=== PATIENT | female | born 1935 | race Caucasian/White ===

== ENCOUNTER → 2017-03-26 08:42 | Outpatient (CLI) | payer MEDICARE, OTHER ==
[2015-07-10 03:39] VITALS: BMI 20.5
[~2017-03-26 08:42] MED LIST: CARDIZEM LA240 MG PO; ELIQUIS2.5 MG PO; MACROBID100 MG PO; PERCOCET 10/3251 TA1 PO; SYNTHROID88 MCG PO; ULTRAM50 MG PO; ZETIA10 MG PO
== END | disposition home or self-care (01) ==
LOC: D.LABREF 08:42
DX: M16.12 Unilateral primary osteoarthritis, left hip (principal); Z11.8 Encounter for screening for other infectious and parasitic diseases

== ENCOUNTER 2017-04-16 05:22 | Inpatient (IN) | payer MEDICARE, OTHER ==
--- NOTE | 2017-04-11 10:32 | NUR ---
[facility] APPT: PATIENT HAS SKIN TEAR RIGHT ANTERIOR BRASHER WITH STERI-STRIPS INTACT, SURROUNDING AREA SLIGHTLY RED & PUFFY. DR. NICHOLS NOTIFIED. PATIENT INSTRUCTED TO GO TO OFFICE AFTER PRE-OP TESTING TODAY.
[2017-04-11 10:34] LABS: BASOPHILS 0.6 % (0-2); EOSINOPHILS 7.1 % (0-7); HEMATOCRIT 43.1 % (36.0-48.0); IMMATURE GRANULOCYTES 0.1 % (0-5); LYMPHOCYTES 36.2 % (15-50); MCH 31.8 pg (26.0-34.0); MCHC 32.5 g/dL (31.0-37.0); WBC 7.2 10x3/uL (4.8-10.8)
[2017-04-11 10:51] LABS: APTT 26.9 SECONDS (22.8-39.4); INR 0.97 (0.85-1.17); PROTIME 12.7 SECONDS (11.6-15.0)
[2017-04-11 10:52] LABS: ANION GAP 10.2 mmol/L (8-16); CALCIUM 9.6 mg/dL (8.5-10.1); CARBON DIOXIDE 29.6 mmol/L (21.0-32.0); CREATININE - SERUM 1.3 mg/dL (0.6-1.3); POTASSIUM - SERUM 3.8 mmol/L (3.5-5.1)
[2017-04-11 10:54] LABS: PLATELET COUNT 195 10x3/uL (130-400)
[2017-04-11 11:02] LABS: APPEARANCE SLT CLOUDY (CLEAR); BILIRUBIN NEGATIVE (NEGATIVE); COLOR YELLOW (YELLOW); GLUCOSE NEGATIVE (NEGATIVE); KETONE NEGATIVE (NEGATIVE); NITRITE NEGATIVE (NEGATIVE); PROTEIN 1+ mg/dL (NEGATIVE); SPECIFIC GRAVITY 1.025 (1.005-1.020); UROBILINOGEN NORMAL (NORMAL)
[2017-04-11 11:03] LABS: EPITHELIAL CELLS 0-5 /hpf (0-5); HYALINE CAST 0-5 /lpf (NONE SEEN); MUCUS <1+ /lpf (NONE SEEN); RED CELLS - URINE 25-50 /hpf (0-5); WAXY CAST RARE /lpf (NONE SEEN); WHITE CELLS - URINE 25-50 /hpf (0-5)
[2017-04-11 11:05] LABS: BACTERIA FEW /hpf (NONE SEEN)
[2017-04-16] VITALS (14 sets, daily range): BP systolic 104–134; BP diastolic 47–63; BMI 22.8
[~2017-04-16 05:22] MED LIST changes: +NYSTATIN ORAL SU5 ML PO; +SYNTHROID100 MCG PO; -SYNTHROID88 MCG PO
[2017-04-16] MEDS ORDERED: KEFLEX500 MG (09:48)
--- NOTE | 2017-04-16 16:38 | NUR ---
SCOPE PATCH BEHIND RT EAR ON admit
--- NOTE | 2017-04-16 17:22 | NUR ---
MALICK REYEZ. CALL LIGHT IN REACH.
[2017-04-17 04:00] VITALS: BP 145/74
[2017-04-17 04:57] LABS: HEMATOCRIT 37.1 % (36.0-48.0); HEMOGLOBIN 12.1 g/dL (12-16); MCH 31.3 pg (26.0-34.0); MCHC 32.6 g/dL (31.0-37.0); MCV 95.9 fL (80.0-100.0); MEAN PLATELET VOLUME 10.1 fL (7.4-10.4); RBC 3.87 10x6/uL (4.00-5.40)
--- NOTE | 2017-04-17 07:30 | NUR ---
RECIEVED PT DURING WALKING ROUNDS. PT RESTING IN BED WITH NO COMPLAINTS OF PAIN AT THIS TIME. PT STATING SHE CONTINUES TO "DRIPPLE" URINE. SPOKE WITH DR. EMERSON ABOUT IT. ASSESSMENT DONE PER FLOWSHEET. BED IN LOW POSITION AND CALL LIGHT WITHIN REACH. WILL CONTINUE TO MONITOR.
[2017-04-17 07:50] VITALS: BP 142/69
--- NOTE | 2017-04-17 10:50 | NUR ---
PATIENT UP WITH PT, TOLERATED WELL. RETURNED TO BED AND BED ALARM ON. BED IN LOW POSITION AND CALL LIGHT WITHIN REACH. WILL CONTINUE TO MONITOR.
--- NOTE | 2017-04-17 11:42 | OP ---
PATIENT NAME: CAROLYN MACKENZIE MEDICAL RECORD: [id number] :33 LOCATION:[facility] ADMISSION DATE:04/16/17 SURGEON: BRYAN NICHOLS DO DATE OF OPERATION: 04/16/2017 PROCEDURE PERFORMED: Left total hip arthroplasty. PREOPERATIVE DIAGNOSIS: Left hip end-stage osteoarthritis. POSTOPERATIVE DIAGNOSIS: Left hip end-stage osteoarthritis. INDICATIONS: Ms. Mackenzie is an 81-year-old female that had underwent right total hip arthroplasty a year or so ago. She did well with that and has had left hip pain since, she wanted something done. Injections were offered to her and other conservative management. She said this hip hurts for a long time and she did not want to try the conservative treatments due to the fact that it was painful, and she tried them on the other side and they did not work, so she decided to undergo a left total hip. She has consented verbally for that procedure in the office. SURGEON: Bryan Nichols DO PRESS LEADER: Susan Bronson, advance nurse practitioner. DESCRIPTION OF PROCEDURE: The patient was given a block in the preoperative area and then taken back to the operating room, laid in supine position, given general anesthetic and intubated. Once this was done, she was put in the boot for the Medacta table for anterior hips and moved over to the table, brought down to the post and the boot was set on the table. The left hip was identified and prepped and draped in sterile fashion. A timeout was then performed. Everyone was in agreement to the correct side, site and patient. The patient was given 2 grams Ancef and a timeout was performed. Once this was done, the incision began just down to the tensor fascia mina fascia. Once this was done, the fascia was incised and the anterior fascia was lifted anteriorly off the muscle belly. Adson Kimberly was then used to retract the muscle belly posterior, the fascia anteriorly. The interval between the rectus and the vastus lateralis was then found and incised with a plasma knife. The Adson Kimberly was then turned vertically to move the rectus medially and the tensor fascia mina laterally. Careful dissection was then made down to the vessels. The ascending branch of the lateral femoral circumflex artery and the 2 veins accompanying were encountered, were tied off and then coagulated with the Aquamantys and then cut with plasma knife. Once this was done, the capsule was identified and a capsulotomy was performed over the femoral neck. The femoral head was then removed with a corkscrew and sized. Reaming then commenced. First, we medialized and then reamed up to a 51 and ended up putting in a 52 cup and the cup held well and this was put in under fluoroscopy and seen to be in good position. Attention was then drawn to the femur. The femur was externally rotated in the preoperative floor and then abducted in order to access the femoral canal. The [employer] cutter was then used to cut out the spot in the femoral canal and a canal finder was used to find the canal. Broaching began at 1 and up to a 6, 6 was seemed to be quite firm and then that was trialed. The stem appeared to be a slight amount of varus, and so decided to remove that and lateralize a little bit more. This was done and the 7 broach was placed and seemed to be in good position. Then, we decided to go with the 7 standard offset stem with a minus neck. This was trialed and seemed to be in good OPERATIVE REPORT [id number] CAROLYN MACEKNZIE position. We then put the final implant in of the dual mobility cup with a 28 head, this was done and the Aliyah was then placed in the wound for any other bleeding that may have been from postop bleeding. This was done a second time as a small amount of bleeding was encountered and all vessels were coagulated. The Aliyah was then placed again. The tensor fascia mina fascia was then closed in a running fashion with #1 running Vicryl. Skin was then closed with 2-0 Vicryl in inverted interrupted fashion and Prineo Dermabond was placed on the skin for closure. Once that was done, the patient was awakened and taken to recovery in stable condition. ESTIMATED BLOOD LOSS: 200 mL TRANSINT:[id number] Voice Confirmation ID: [id number] DOCUMENT ID: [id number] BRYAN NICHOLS DO at 1142 CC: [id number] DICTATION DATE: 04/16/17 161 MAINTENANCE CONSTRUCTION HELPER: 04/16/172202 [facility] [place] [id number] [place] [address]
[2017-04-17 12:11] VITALS: BP 154/67
[2017-04-17 14:58] LABS: APPEARANCE CLEAR (CLEAR); BILIRUBIN NEGATIVE (NEGATIVE); COLOR YELLOW (YELLOW); GLUCOSE NEGATIVE (NEGATIVE); KETONE NEGATIVE (NEGATIVE); NITRITE NEGATIVE (NEGATIVE); PROTEIN NEGATIVE (NEGATIVE); UROBILINOGEN NORMAL (NORMAL)
[2017-04-17 14:59] LABS: RED CELLS - URINE >50 /hpf (0-5); WHITE CELLS - URINE OCC /hpf (0-5)
--- NOTE | 2017-04-17 14:59 | NUR ---
Patient Name: CAROLYN MACKENZIE Admission Status: Elective Accout number: [id number] Admission Date: 04-16-2017 : 1935 Admission Diagnosis:UNILATERAL PRIMARY OSTEOARTHRITIS, LEFT HIP Attending: LEONILA NICHOLS Current LOS: 1 Anticipated DC Date: Planned Disposition: Home Primary Insurance: MEDICARE A & B Discharge Planning Comments: CM met with patient to assess discharge planning needs. Patient lives independently at home where she plans to return to upon discharge. She stated that her stepson ( Erik) will be the one to drive her home and stay with her while she is recovering. I asked her how long he could stay and she said as much as she needed and that she had good neighbors who could help too. She said she was not sure that she needed HH and that she will talk to the MD about that. She has a cane and a walker and a grabber at home. CM will continue to follow and assist with discharge planning needs. PCP: Jones Molina by [facility]ael Naircharlescathryn) [phone] Front Office Assistant: Brina Casanova * Is the patient Alert and Oriented? Yes 0 * How many steps to enter\exit or inside your home? 1 0 * PCP Jones 0 * Pharmacy [facility] by the [facility] 0 * Preadmission Environment Home with Family 0 * ADLs Independent 0 * Equipment Cane Walker 0 * Other Equipment grabber 0 * List name and contact numbers for known caregivers / representatives who currently or will assist patient after discharge: Erik Naircharlescathryn) [phone] 0 * Community resources currently utilized None 0 * Additional services required to return to the preadmission environment? Yes 0 * Can the patient safely return to the preadmission environment? Yes 0 * Has this patient been hospitalized within the prior 30 days at any hospital? No 0 Grand Total: 0
[2017-04-17 15:00] LABS: BACTERIA FEW /hpf (NONE SEEN); EPITHELIAL CELLS OCC /hpf (0-5)
[2017-04-17 15:48] VITALS: BP 143/57
[2017-04-17 20:00] VITALS: BP 142/69
--- NOTE | 2017-04-17 20:41 | NUR ---
PATIENT IS HAVING URINE OUTPUT ALMOST CONSTANTLY, SMALL AMOUNT LEAKING OUT. PATIENT IS VERBALIZING DISCOMFORT IN HER LOWER ABDOMEN/PELVIC AREA. BLADDER IS DISTENDED PER PALPATION. DID A BLADDER SCAN, 856ML. PAGED .
--- NOTE | 2017-04-17 21:00 | NUR ---
IN AND OUT CATHETERIZED PATIENT USING STERILE TECHNIQUE, 1000ML OF YELLOW URINE OUT. PATIENT VERBALIZED FEELING RELIEF FROM ABDOMINAL PAIN.
[2017-04-18 04:00] VITALS: BP 153/62
[2017-04-18 04:07] LABS: HEMATOCRIT 36.9 % (36.0-48.0); HEMOGLOBIN 11.9 g/dL (12-16); MCH 31.2 pg (26.0-34.0); MCHC 32.2 g/dL (31.0-37.0); MCV 96.9 fL (80.0-100.0); MEAN PLATELET VOLUME 10.5 fL (7.4-10.4); RBC 3.81 10x6/uL (4.00-5.40); RDW 13.5 % (11.5-14.5)
[2017-04-18 04:15] LABS: WBC 8.8 10x3/uL (4.8-10.8)
--- NOTE | 2017-04-18 07:10 | NUR ---
PATIENT RECEIVED IN MID NAPIER POSITION RESTING WITH EYES CLOSED. RESPIRATIONS EVEN AND UNLABORED. SIDE RAILS UP X2. BED IN LOW POSITION. CALL LIGHT IN REACH. BED ALARM ON. SCDS ON BILATERALLY.
--- NOTE | 2017-04-18 07:30 | NUR ---
PATIENT ALERT IN BED. INCONTINENT OF URINE. LINEN CHANGE COMPLETE. POSITIONED FOR COMFORT. FRESH ICE PACK PLACED TO LEFT HIP. WELL TOLERATED. SIDE RAILS UP X2. BED IN LOW POSITION. CALL LIGHT IN REACH. BED ALARM ON.
--- NOTE | 2017-04-18 07:36 | CN ---
PATIENT NAME:CAROLYN MACKENZIE MEDICAL RECORD: [id number] : 33 LOCATION:[facility] ADMIT DATE: 04/16/17 ACCOUNT: [id number] CONSULTING PHYSICIAN: ELLEN EMERSON MD REFERRING PHYSICIAN: LEONILA NICHOLS DO DATE OF CONSULTATION: 04/16/2017 DATE OF ADMISSION: 04/16/2017 REASON FOR CONSULTATION: Medical management. HISTORY OF PRESENT ILLNESS: The patient is an 81-year-old female, patient of [facility], who I have followed for many years. She had presented complaining of pain in the left hip. She had been referred to Dr. Nichols for left hip replacement. The patient was therefore admitted, did undergo left hip replacement. PAST MEDICAL HISTORY: Significant that she has had a history of having hyperlipidemia. She has had hypertension and hypothyroidism. She has had kidney stones in the past. She had mild renal insufficiency and osteoporosis. She has had a shunt placed for large arachnoid cyst. She has had carpal tunnel, cataract surgery and appendectomy. MEDICATIONS: Include diltiazem 240 mg once a day, Zetia 10 mg 1 p.o. q. day, Synthroid 100 mcg once a day, tramadol 50 mg q.6 hours p.r.n. severe pain. ALLERGIES: CODEINE, DEMEROL, MORPHINE AND SPIRIVA. FAMILY HISTORY: Father at 86, reasons unknown. Mother of complication of diabetes at 73. 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 She is a . The patient has had a history of smoking in the past. She has been a 1 pack per day smoker most of her adult life. She denies any ethanol use or abuse. REVIEW OF SYSTEMS: CONSTITUTIONAL: She denies any headaches, seizures or syncope. She denies change in visual or auditory acuity. PULMONARY: She denies any shortness of breath, cough, congestion, history of TB, asthma or bronchitis. CARDIOVASCULAR: No chest pain, palpitations, PND or orthopnea. GASTROINTESTINAL: No chronic nausea, vomiting, melena or hematochezia. GENITOURINARY: No urgency, frequency or dysuria. PHYSICAL EXAMINATION: GENERAL: The patient is afebrile. VITAL SIGNS: Stable. GENERAL: She is alert. She is oriented times 3. HEENT: Her head is normocephalic. No lesions. Ears: TMs clear. Eyes: Pupils equal, round and reactive to light. Her extraocular movements are intact. Her nasal cavity, oral cavity and oropharynx are clear. NECK: Supple. There is no adenopathy. HEART: Has a regular rate. No murmurs, gallops or rubs. LUNGS: Clear. ABDOMEN: Soft, bowel sounds positive. The patient has a dressing over the left CONSULT REPORT [id number] CAROLYN MACKENZIE greater trochanter. There is no active bleeding. There is some mild ecchymosis present. LABORATORY DATA: On the day after surgery, her white count is 12, hemoglobin 12.1, hematocrit 37.1, her platelets are 152. Sodium 139, potassium 3.8, chloride is 103, CO2 is 29, BUN is 28, creatinine of 1.1. The patient had complained of having urinary frequency as well as having problems with gastroesophageal reflux. She had urinalysis on the , which did show 2+ leukocytes and 25-50 wbc's with 25-50 rbc's. ASSESSMENT: Status post left hip replacement; history of degenerative joint disease, end-stage, of the left hip; history of arachnoid cyst with [facility] shunt in place, hypertension, hypothyroidism, hyperlipidemia, urinary tract infection, gastroesophageal reflux. PLAN: The patient will be placed on Macrobid 100 mg p.o. b.i.d. for 7 days. She will also have urine culture, placed on Protonix 40 mg IV q.24 hours. We will follow with you. TRANSINT:[id number] Voice Confirmation ID: [id number] DOCUMENT ID: [id number] ELLEN EMERSON MD at 0736 CC: [id number] DICTATION DATE: 04/17/1724 PHARMACY TECHNICIAN INSTRUCTOR: 04/17/17 0803 ADM IN [facility] [address] [place] [address]
[2017-04-18 07:53] VITALS: BP 148/61
--- NOTE | 2017-04-18 08:13 | NUR ---
IN AND OUT CATHED PATIENT, 1000ML OUT. STERILE TECHNIQUE MAINTAINED.
--- NOTE | 2017-04-18 08:40 | NUR ---
PATIENT ALERT IN HIGH NAPIER POSITION. NO SIGNS OF DISTRESS NOTED. TOLERATED BREAKFAST WITHOUT DIFFICULTY. SCHEDULED MEDICATION ADMINISTERED WELL PRN NORCO. DENIES NEEDS. SIDE RAILS UP X2. BED IN LOW POSITION. CALL LIGHT IN REACH. BED ALARM ON.
--- NOTE | 2017-04-18 10:30 | NUR ---
ALERT IN BED VISTING WITH FAMILY. NO SIGNS OF DISTRESS NOTED. STATES SHE JUST WALKED WITH PT AND IT WENT WELL. DENIES NEEDS. SIDE RAILS UP X3. BED IN LOW POSITION. CALL LIGHT IN REACH.
[2017-04-18 12:35] VITALS: BP 136/64
--- NOTE | 2017-04-18 13:05 | NUR ---
PATIENT ALERT IN BED. BLADDER SCAN SHOWS 330ML
[2017-04-18 15:32] VITALS: BP 138/67
--- NOTE | 2017-04-18 17:23 | NUR ---
PATIENT RESTING QUIETLY WITH EYES CLOSED. RESPIRATIONS EVEN AND UNLABORED. WAKES EASY. SCHEDULED MEDICATION ADMINISTERED. SIDE RAILS UP X2. BED IN LOW POSITION. CALL LIGHT IN REACH.
[2017-04-18 20:00] VITALS: BP 150/68
[2017-04-19] VITALS: BP 130/56
[2017-04-19 00:47] LABS: APPEARANCE CLOUDY (CLEAR); BACTERIA FEW /hpf (NONE SEEN); BILIRUBIN NEGATIVE (NEGATIVE); COLOR YELLOW (YELLOW); EPITHELIAL CELLS 0-5 /hpf (0-5); GLUCOSE NEGATIVE (NEGATIVE); KETONE NEGATIVE (NEGATIVE); NITRITE NEGATIVE (NEGATIVE); PROTEIN 1+ mg/dL (NEGATIVE); RED CELLS - URINE 25-50 /hpf (0-5); SPECIFIC GRAVITY 1.015 (1.005-1.020); UROBILINOGEN NORMAL (NORMAL)
[2017-04-19 00:48] LABS: AMORPHOUS SEDIMENT >1+ /lpf (NONE SEEN); MUCUS <1+ /lpf (NONE SEEN)
[2017-04-19 04:00] VITALS: BP 117/56
[2017-04-19 05:50] LABS: BASOPHILS 0.2 % (0-2); EOSINOPHILS 6.5 % (0-7); HEMATOCRIT 34.9 % (36.0-48.0); HEMOGLOBIN 11.2 g/dL (12-16); IMMATURE GRANULOCYTES 0.2 % (0-5); LYMPHOCYTES 18.3 % (15-50); MCH 31.3 pg (26.0-34.0); MCHC 32.1 g/dL (31.0-37.0); MCV 97.5 fL (80.0-100.0); MEAN PLATELET VOLUME 10.4 fL (7.4-10.4); MONOCYTES 7.4 % (2-11); NEUTROPHILS 67.4 % (40-80); PLATELET COUNT 146 10x3/uL (130-400); RBC 3.58 10x6/uL (4.00-5.40); RDW 13.5 % (11.5-14.5)
[2017-04-19 06:28] LABS: ANION GAP 9.7 mmol/L (8-16); CALCIUM 8.5 mg/dL (8.5-10.1); CARBON DIOXIDE 28.2 mmol/L (21.0-32.0); POTASSIUM - SERUM 3.9 mmol/L (3.5-5.1)
--- NOTE | 2017-04-19 07:20 | NUR ---
PATIENT RECEIVED IN MID NAPIER POSITION. NO SIGNS OF DISTRESS NOTED. SIDE RAILS UP X2. BED IN LOW POSITION. CALL LIGHT IN REACH. DENIES NEEDS.
[2017-04-19 08:20] VITALS: BP 146/50
--- NOTE | 2017-04-19 08:40 | NUR ---
Patient being discharge home today with [facility] (TRACIE signed and placed in chart) Patient with have Home PT with [facility] Also. Patients son will be the one to drive her home. IMM served, referral sent to [facility], spoke with Elza
--- NOTE | 2017-04-19 08:55 | NUR ---
PATIENT ALERT IN HIGH NAPIER POSITION. NO SIGNS OF DISTRESS NOTED. SCHEDULED MEDICATION ADMINISTERED WELL PRN NORCO. DENIES FURTHER NEEDS. SIDE RAILS UP X2. BED IN LOW POSITION. CALL LIGHT IN REACH.
--- NOTE | 2017-04-19 10:00 | NUR ---
PATIENT UP AMBULATING IN HALLWAY WITH PT. NO SIGNS OF DISTRESS NOTED.
[2017-04-19] MEDS ORDERED: ELIQUIS2.5 MG PO (12:11)
[2017-04-19] MEDS ORDERED: HYDROCODONE-APA1 TAB PO (12:11)
[2017-04-19] MEDS ORDERED: MACROBID100 MG PO (12:11)
[2017-04-19 12:12] VITALS: BP 135/60
--- NOTE | 2017-04-19 13:35 | NUR ---
IV TO RIGHT WRIST D/C WITH CATH TIP INTACT. SITE COVERED WITH GAUZE AND BANDAID. DRESSING TO LEFT HIP CHANGED. NO REDNESS, INFLAMMATION OR DRAINAGE NOTED TO SITE. COVERED WITH GAUZE AND TEGADERM.
--- NOTE | 2017-04-19 14:15 | NUR ---
D/C TEACHING AND PRESCRIPTIONS PROVIDED TO PATIENT. STATES UNDERSTANDING. TRANSFERRED DOWNSTAIRS VIA WHEELCHAIR WITH STAFF.
== END 2017-04-19 14:19 | disposition home health service (06) | DRG 470 ==
LOC: D.SDCHOLD 05:22 → D.MS 05:22 → D.SDCHOLD 07:30 → D.MS 16:23
PROVIDERS: Anesthesiology; Family Medicine; Orthopaedic Surgery; Urology; ADMIT Orthopaedic Surgery
PROC: 0SRB0JZ Replacement of Left Hip Joint with Synthetic Substitute, Open Approach (ICD-10-PCS; principal; 2017-04-16 10:00)
DX: M16.12 Unilateral primary osteoarthritis, left hip (principal); N39.0 Urinary tract infection, site not specified; I10 Essential (primary) hypertension; J44.9 Chronic obstructive pulmonary disease, unspecified; R33.9 Retention of urine, unspecified; R39.81 Functional urinary incontinence